=== PATIENT | female | born 1965 | race Caucasian/White ===

== ENCOUNTER → 2017-02-08 | Outpatient (CLI) | payer OTHER | END | disposition home or self-care (01) | LOC: NM 09:28 | PROVIDERS: ATTEND Surgery | DX: E04.1 Nontoxic single thyroid nodule (principal) | CPT/HCPCS: 78012; A9516 ==

== ENCOUNTER 2017-09-17 19:54 | Emergency (ER) | payer OTHER ==
[2017-09-17 20:24] VITALS: TEMP 99; O2SAT 97
[2017-09-17] MEDS ORDERED: SODIUM CHLORIDE 0.9% 1000ML 1,000 ML IVS ONE (20:24)
[2017-09-17] MEDS ORDERED: PROMETHAZINE HCL INJ 12.5 MG in SODIUM CHLORIDE 0.9% 50ML 50 ML IVPB ONE (20:24)
[2017-09-17] MEDS ORDERED: PROMETHAZINE HCL INJ 25 MG/ML VIAL ONE (20:30)
[2017-09-17] MEDS ORDERED: SODIUM CHLORIDE 0.9% 50ML 50 ML ONE (20:30)
--- NOTE | 2017-09-17 20:46 | ED.PDOC ---
History of Present Illness - General Chief Complaint: Drug or Alcohol Abuse Stated Complaint: thinks shes withdrawing or having reaction to med Time Seen by Provider: 09/17/17 20:11 Source: patient Exam Limitations: no limitations - History of Present Illness Timing/Duration: 24 hours, getting worse Severity: moderate Improving Factors: nothing Worsening Factors: nothing Associated Symptoms: fever/chills, malaise, nausea/vomiting, weakness Allergies/Adverse Reactions: Allergies NO KNOWN ALLERGY Allergy (Verified 09/17/17 20:24) Home Medications: Ambulatory Orders Cyclobenzaprine HCl [Flexeril] 5 mg PO Q8HR PRN 09/17/17 Exemestane [Exemestane] 25 mg PO DAILY 09/17/17 HYDROcodone 10MG/APAP 325MG [[place] 10/325] 1 ea PO TID 09/17/17 Ibuprofen [Ibuprofen] 800 mg PO Q8HR PRN 09/17/17 Meloxicam [Mobic] 15 mg PO DAILY 09/17/17 Promethazine Tab [Phenergan Tablet] 25 mg PO .Q4H PRN #15 tab 09/17/17 cloNAZepam [Klonopin] 0.5 mg PO Q8HR PRN 09/17/17 Review of Systems - Review of Systems Constitutional: States: chills, weakness. Denies: fever EENTM: States: nose congestion Respiratory: Denies: cough, short of breath Cardiology: Denies: chest pain Gastrointestinal/Abdominal: States: diarrhea, nausea, vomiting. Denies: abdominal pain Genitourinary: States: no symptoms reported Musculoskeletal: States: muscle pain Skin: States: no symptoms reported Neurological: States: anxiety, weakness Endocrine: States: no symptoms reported Hematologic/Lymphatic: States: no symptoms reported Past Medical History (General) - Patient Medical History Hx Seizures: No Hx Stroke: No Hx Dementia: No Hx Asthma: No Hx of COPD: No Hx Cardiac Disorders: No Hx Congestive Heart Failure: No Hx Pacemaker: No Hx Hypertension: No Hx Thyroid Disease: No Hx Diabetes: No Hx Gastroesophageal Reflux: No Hx Renal Disease: No Hx Cancer: Yes - breast Hx of HIV: No Hx MRSA: No - Vaccination History Hx Tetanus, Diphtheria Vaccination: No Hx Influenza Vaccination: No - Social History Hx Tobacco Use: Yes Hx Alcohol Use: No Hx Substance Use: No Hx Substance Use Treatment: No Hx Depression: No Family Medical History - Family History Mother Family History: Unknown Living Status: Still Living Physical Exam - Physical Exam General Appearance: Anxious, Restless Eye Exam: bilateral normal Ears, Nose, Throat: hearing grossly normal, normal pharynx Neck: non-tender, full range of motion Respiratory: chest non-tender, lungs clear, normal breath sounds, no respiratory distress Cardiovascular/Chest: normal peripheral pulses, regular rate, rhythm, no edema Gastrointestinal/Abdominal: normal bowel sounds, non tender, soft Extremity: normal range of motion, non-tender, normal inspection Neurologic: oriented x 3 Skin Exam: normal color, warm/dry Lymphatic: no adenopathy Departure - Departure Clinical Impression: Acute narcotic withdrawal, Fibromyalgia syndrome Disposition: Discharge to Home or Self Care Departure Forms: ED Discharge - Pt. Copy, Patient Portal Self Enrollment Instructions: DI for Drug Overdose in Adults Referrals: CORINE WESTBROOK [Primary Care Provider] - 1-2 Weeks Prescriptions: Promethazine Tab [Phenergan Tablet] 25 mg PO .Q4H PRN #15 tab PRN Reason: Nausea Home Medications: Ambulatory Orders Cyclobenzaprine HCl [Flexeril] 5 mg PO Q8HR PRN 09/17/17 Exemestane [Exemestane] 25 mg PO DAILY 09/17/17 HYDROcodone 10MG/APAP 325MG [[place] 10/325] 1 ea PO TID 09/17/17 Ibuprofen [Ibuprofen] 800 mg PO Q8HR PRN 09/17/17 Meloxicam [Mobic] 15 mg PO DAILY 09/17/17 Promethazine Tab [Phenergan Tablet] 25 mg PO .Q4H PRN #15 tab 09/17/17 cloNAZepam [Klonopin] 0.5 mg PO Q8HR PRN 09/17/17
[2017-09-17 21:42] VITALS: BP 110/73
== END 2017-09-17 21:44 | disposition home or self-care (01) ==
LOC: ER 19:54
DX: F19.939 Other psychoactive substance use, unspecified with withdrawal, unspecified (principal); M79.7 Fibromyalgia; Z85.3 Personal history of malignant neoplasm of breast; Z79.899 Other long term (current) drug therapy; Z87.891 Personal history of nicotine dependence
CPT/HCPCS: 36415; 80053; 81001; 85025; A4216; J2060; J2550; J7030